=== PATIENT | male | born 1975 | race Hispanic/Latino ===

== ENCOUNTER → 2024-07-25 | Outpatient (CLI) | payer OTHER ==
[2024-07-25 12:25] LABS: BASOPHILS # (AUTO) 0.05 K/uL (0.00-0.20); BASOPHILS % (AUTO) 0.5 % (0.0-5.0); EOSINOPHILS # (AUTO) 0.55 K/uL (0.00-0.70); EOSINOPHILS % (AUTO) 5.5 % (0.0-8.0); HEMATOCRIT 39.7 % (42-54); IMMATURE GRANULOCYTE ABSOLUTE 0.11 K/uL (0-1); LYMPHOCYTES # (AUTO) 1.9 K/uL (1.0-4.8); LYMPHOCYTES % (AUTO) 18.5 % (21.0-51.0); MEAN CORPUSCULAR HEMOGLOBIN 27.1 pg (27.0-33.0); MEAN CORPUSCULAR HGB CONC 32.5 g/dL (32.0-36.0); MEAN CORPUSCULAR VOLUME 83.4 fL (79-99); MONOCYTES # (AUTO) 0.9 K/uL (0.1-1.0); MONOCYTES % (AUTO) 8.8 % (3.0-13.0); NEUTROPHILS # (AUTO) 6.6 K/uL (1.8-7.7); NEUTROPHILS % (AUTO) 65.6 % (40.0-77.0); PLATELET COUNT (AUTO) 255 K/uL (130-400); RED BLOOD CELL COUNT(AUTO) 4.76 MIL/uL (4.50-6.20)
[2024-07-25 12:53] LABS: CREATININE 0.8 mg/dL (0.5-1.3); DIGOXIN 0.65 ng/mL (0.50-2.00); POTASSIUM 4.9 mmol/L (3.5-5.1)
== END | disposition home or self-care (01) ==
LOC: LAB 08:16
PROVIDERS: ATTEND Internal Medicine Cardiovascular Disease
DX: I50.22 Chronic systolic (congestive) heart failure (principal)
CPT/HCPCS: 36415; 80048; 80162; 85025

== ENCOUNTER 2025-06-17 06:40 | Day surgery (SDC) | payer OTHER ==
[2025-06-15 08:13] LABS: IMMATURE GRANULOCYTE ABSOLUTE 0.11 K/uL (0-1); NUCLEATED RED BLOOD CELLS 0.0 % (0.0-0.19); PLATELET COUNT (AUTO) 212 K/uL (130-400); RED BLOOD CELL COUNT(AUTO) 5.06 MIL/uL (4.50-6.20); RED CELL DISTRIBUTION WIDTH 13.1 % (11.0-15.5); WHITE BLOOD COUNT (AUTO) 11.2 K/uL (4.8-10.8)
[2025-06-15 08:22] LABS: CREATININE 0.9 mg/dL (0.5-1.3); GLOMERULAR FILTR. RATE CALC 103.0 mL/min (>90); GLUCOSE,RANDOM 358.0 mg/dL (70-105); SODIUM SERUM 133.0 mmol/L (136-145); UREA NITROGEN, BLOOD 13.0 mg/dL (7-18)
[2025-06-15 08:52] VITALS: BP 141/82; PULSE 120; RESP 13; TEMP 97.5
--- NOTE | 2025-06-16 12:26 | NUR ---
REPORT REPORTED BMP AND CBC TO BENJAMIN ELDRIDGE NP. RECEIVED ORDERS TO REPEAT CBC IN AM Addendum: 06/16/25 at 1229 by FALLON DICKSON RN RN BENJAMIN PENA
[~2025-06-17] VITALS: Ht 165.1 cm; Wt 143.9 kg
[~2025-06-17 06:40] MED LIST: AMIO200T73 PO; ATOR20TA65 PO; COMPLETE VITAMIN; FURO20TA4 PO; METF-444 PO; METO-391 PO; PANT40TA54 PO; RIVA20TA PO; SEMA1PEN3 SQ; SPIR50TA5 PO
[2025-06-17 06:55] VITALS: BP 138/73; PULSE 106; RESP 17; TEMP 97.2
[2025-06-17 07:38] LABS: IMMATURE GRANULOCYTE ABSOLUTE 0.08 K/uL (0-1); NUCLEATED RED BLOOD CELLS 0.0 % (0.0-0.19); PLATELET COUNT (AUTO) 200 K/uL (130-400); RED BLOOD CELL COUNT(AUTO) 4.82 MIL/uL (4.50-6.20); RED CELL DISTRIBUTION WIDTH 12.8 % (11.0-15.5); WHITE BLOOD COUNT (AUTO) 9.4 K/uL (4.8-10.8)
--- NOTE | 2025-06-17 08:04 | EKG ---
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
--- NOTE | 2025-06-17 09:15 | NUR ---
PT SYNCHRONIZED CARDIOVERTED 200 JOULES VSS NAD PT TOLERATED WELL
--- NOTE | 2025-06-17 09:18 | NUR ---
PT AWAKE SPEAKING WITH STAFF
[2025-06-17 09:35] VITALS: BP 110/69; PULSE 75; RESP 15
[2025-06-17 09:50] VITALS: BP 107/78; PULSE 83; RESP 14
[2025-06-17 10:05] VITALS: BP 121/77; PULSE 78; RESP 15
[2025-06-17 10:20] VITALS: BP 117/74; PULSE 77; RESP 15
--- NOTE | 2025-06-17 10:20 | NUR ---
BOTH PT AND SPOUSE GIVEN VERBAL AND WRITTEN INSTRUCTIONS. SPOUSE DID STATE BOTH ARE UNABLE TO READ SO I REITERATED VERBAL INSTRUCTIONS 2 TIMES TO BOTH AND DID MENTION ABOUT HIS FOLLOW UP APPOINTMENT WITH DR. PEREA WELL. SPOUSE DID TELL ME [facility] CALLED HER WITH AN APPOINTMENT WELL. IV REMOVED SITE ASYMPTOMATIC. PT TAKEN OUT VIA WHEELCHAIR SPOUSE DRIVING.
--- NOTE | 2025-06-17 12:33 | EKG ---
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
== END 2025-06-17 10:25 | disposition home or self-care (01) ==
LOC: DAH 06:40
PROVIDERS: ATTEND Internal Medicine Cardiovascular Disease
DX: I48.19 Other persistent atrial fibrillation (principal); I50.22 Chronic systolic (congestive) heart failure; I44.0 Atrioventricular block, first degree; I42.0 Dilated cardiomyopathy; E66.01 Morbid (severe) obesity due to excess calories; E11.9 Type 2 diabetes mellitus without complications; Z79.84 Long term (current) use of oral hypoglycemic drugs; Z86.73 Personal history of transient ischemic attack (TIA), and cerebral infarction without residual deficits; Z90.49 Acquired absence of other specified parts of digestive tract; Z68.43 Body mass index [BMI] 50.0-59.9, adult; Z79.01 Long term (current) use of anticoagulants; Z79.899 Other long term (current) drug therapy
CPT/HCPCS: 80048; 85025 ×2; 36415 ×2; 92960; 93005 ×2; J2704; A4620; A4215; A4222; A4221; A4663; A4216; A4606; A4223 ×3; J3490

== ENCOUNTER → 2025-08-14 | Outpatient (CLI) | payer OTHER ==
[~2025-08-14] VITALS: Ht 162.6 cm; Wt 150.0 kg
[~2025-08-14] MED LIST changes: +FURO40TA5 PO; +SILD100T PO
[2025-08-14 08:36] LABS: IMMATURE GRANULOCYTE ABSOLUTE 0.05 K/uL (0-1); NUCLEATED RED BLOOD CELLS 0.0 % (0.0-0.19); PLATELET COUNT (AUTO) 179 K/uL (130-400); RED BLOOD CELL COUNT(AUTO) 5.07 MIL/uL (4.50-6.20); RED CELL DISTRIBUTION WIDTH 13.1 % (11.0-15.5); WHITE BLOOD COUNT (AUTO) 8.5 K/uL (4.8-10.8)
[2025-08-14 08:42] LABS: CREATININE 0.9 mg/dL (0.5-1.3); GLOMERULAR FILTR. RATE CALC 103.0 mL/min (>90); GLUCOSE,RANDOM 328.0 mg/dL (70-105); SODIUM SERUM 129.0 mmol/L (136-145); UREA NITROGEN, BLOOD 16.0 mg/dL (7-18)
[2025-08-14 09:20] VITALS: BP 131/76; PULSE 87; RESP 14; TEMP 97.5
--- NOTE | 2025-08-14 09:43 | EKG ---
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
[2025-08-14 09:50] LABS: INR 1.43 (0.85-1.15)
--- NOTE | 2025-08-17 14:13 | NUR ---
report reported bmp and persistent cough pt had on sunday. also that pt reported he has had cough for about a week. received orders to cancel if pt still sick. as per pt he is still sick
== END | disposition home or self-care (01) ==
LOC: DAH 11:01 → EDSTATUS 08-18 08:00
PROVIDERS: ATTEND Internal Medicine Cardiovascular Disease
DX: I48.19 Other persistent atrial fibrillation (principal); I44.0 Atrioventricular block, first degree; Z53.8 Procedure and treatment not carried out for other reasons; I50.22 Chronic systolic (congestive) heart failure; Z79.899 Other long term (current) drug therapy; E11.9 Type 2 diabetes mellitus without complications; Z20.822 Contact with and (suspected) exposure to COVID-19
CPT/HCPCS: 36415; 80048; 85025; 85610; 85730; 87426; 93005